=== PATIENT | female | born 2000 | race Caucasian/White ===

== ENCOUNTER 2020-07-27 11:27 | Outpatient (RCR) | payer OTHER, SELFPAY | END 2020-09-12 23:59 | LOC: IMMUN 11:27 | PROVIDERS: Referring Provider Family Medicine; Visit Provider Family Medicine | DX: Z23 Encounter for immunization (principal) | CPT/HCPCS: 0001A; 91300 ==

== ENCOUNTER 2020-11-29 22:26 | Emergency (ER) | payer OTHER, SELFPAY ==
[2020-11-29 22:28] VITALS: BP 163/94; PULSE 100; RESP 18; TEMP 36.3; O2SAT 95; BMI 32.2
[2020-11-29 22:51] LABS: Absolute Neutrophil Count 7.3 X10^3/uL (2.0-7.7); Basophil# 0.11 X10^3/uL; Basophil% 0.8 % (0-1); Eosinophil# 0.24 X10^3/uL; Eosinophils% 1.8 % (0-5); Hematocrit 43.1 % (37-47); Hemoglobin 15.2 g/dL (12.0-15.0); Lymphocyte % 34.5 % (19-41); Mean Corp Hgb Conc 35.3 g/dL (32-36); Mean Corpuscular Hgb 30.8 pg (27.0-32.0); Mean Corpuscular Volume 87.4 fL (81-99); Mean Platelet Vol. 8.4 fl (6.2-12.0); Monocyte# 1.05 X10^3/uL; Monocyte% 7.9 % (0-10); NRBC Flagged by Analyzer 0 % (0-5); Neutrophil # 7.28 X10^3/uL (2.7-7.7); Neutrophil % 54.5 % (47-70); Platelet Count 487 K/mm3 (150-450); RBC Distribution Width CV 14.9 % (11.6-14.6); RBC Distribution Width SD 47.5 fl (35.1-43.9); Red Blood Count 4.93 M/mm3 (4.2-5.4); White Blood Count 13.4 K/mm3 (4.4-11.0)
[2020-11-29 23:02] LABS: Amphetamine Urine VISTA NEGATIVE (<1000 ng/mL); Barbiturate Urine VISTA NEGATIVE (< 200 ng/mL); Benzodiazepine Urine VISTA POSITIVE (< 200 ng/mL); Cocaine Urine VISTA NEGATIVE (< 300 ng/mL); Ecstacy Urine VISTA POSITIVE (< 500 ng/mL); Methadone Urine VISTA NEGATIVE (< 300 ng/mL); PCP Urine VISTA NEGATIVE (< 25 ng/mL); THC Urine VISTA NEGATIVE (< 50 ng/mL); Vista UDS pH Range 5
[2020-11-29 23:08] LABS: Internal QC Validated? YES +Cl - CLEAR BKGD; Pregnancy, Urine Negative Negative
[2020-11-29 23:11] LABS: Anion Gap 3 (5-15); BUN 12 mg/dL (7-18); BUN/Creat Ratio 19.1 RATIO (10-20); Calcium,Total 9.1 mg/dL (8.5-10.1); Chloride 108 mmol/L (98-107); Creatinine, Serum 0.63 mg/dL (0.55-1.02); EST Glomerular Filtration Rate 126 mL/min (>60); Est Glom Filt Rate - Afr Amer 152 mL/min (>60); Estimated Creatinine Clearance 115.87 ml/min; Glucose 86 mg/dL (74-106); Potassium 3.8 mmol/L (3.5-5.1); Sodium Level 138 mmol/L (136-145)
[2020-11-29 23:13] LABS: Alcohol, Blood (Medical)-Serum < 3.0 mg/dL
[2020-11-30 00:21] LABS: Color, Urine Yellow (Yellow); Glucose, Dipstick Normal (Normal); Ketone-Dipstick 5 mg/dl (Negative); Leukocyte Esterase-Dipstick 25 /ul (Negative); Nitrite-Dipstick Negative (Negative); Occult Blood-Urine 150 /ul (Negative); Protein-Dipstick 30 mg/dl (Negative); Specific Gravity, Urine 1.025 (1.002-1.030); Urine Bilirubin Dipstick Negative (Negative); Urine Clarity Sl. Cloudy (Clear); Urine Urobilinogen 1 mg/dl (Normal)
--- NOTE | 2020-11-30 00:31 | NURSING ---
TALKED TO CRISIS AT 0030
--- NOTE | 2020-11-30 00:49 | EX.ED.VIS.PS ---
HPI HPI - Psych History of Present Illness Chief Complaint: Suicidal Informant: patient and parent Onset/Context/Timing Onset: Days Context: Sudden Onset Conflict: Family and - (Things are just not right no longer wants to live and feels hopeless) Timing: Continuous Current Severity: Severe Maximum Severity: Severe Worsened by: Situational factors and - (Issues with father, feels things are not normal.) Relieved by: Nothing Associated Symptoms Associated Symptoms - Psych: Positive for Depressed, Decreased Interest, Guilt, Decreased Concentration, Hopelessness and Suicidal Thoughts; Negative for Change in Eating, Change in sleeping, Grandiosity, Flight of Ideas, Increased activity, Pressured Speech, Agitated, Paranoia, Visual Hallucinations and Auditory Hallucinations Specific plan (suicidal thought): No specific plan Narrative Narrative: 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 She has history of depression. She recently returned from a trip. She was in [place]. She states that she has been back things about the same. She is depressed. She has suicidal thoughts. She has no specific plan. There are issues with her father. She states there are no issues with her 2 brothers. There may be issues with her mom. She voiced her mom that she no longer wants to live. She feels hopeless. She feels there is no reason to live. She is never been hospitalized for depression or psychiatric reasons. She is never attempted to harm herself. Prior similar symptoms: Yes Recent Illness/Hospitalization: No PFSH COUNT INCLUDES THE [facility] Medical History Depression Home Medications norethindrone ac-eth estradiol [June04/26 ()] 1 tab PO DAILY 11/30/20 [History Last Taken Unknown] sertraline 200 mg PO DAILY 11/30/20 [History Last Taken Unknown] Allergy/AdvReac Type Severity Reaction Status Date / Time No Known Allergies Allergy Verified 11/29/20 22:31 no surgical history Social History (Updated 11/30/20 @ 00:[address] Dorian Dozier MD) household members: family Smoking Status: Never smoker alcohol intake: current alcohol intake frequency: other substance use type: does not use ROS ROS ED Constitutional Constitutional ED: Denies chills, fever(s), subjective or sweats Eyes Eyes: Denies blurry vision, change in vision or diplopia ENT ENT ED: Denies ear pain, rhinorrhea or sore throat Cardiovascular Cardiovascular: Denies chest pain, palpitations or racing heartbeat Respiratory/Chest Respiratory/Chest: Denies cough, dyspnea or dyspnea on exertion Gastrointestinal Gastrointestinal: Denies abdominal pain, diarrhea, nausea or vomiting Genitourinary Genitourinary ED: Denies dysuria, hematuria or urinary frequency Musculoskeletal Musculoskeletal: Denies arthralgias, back pain, myalgias or neck pain Integumentary Denies rash Neurologic Neurologic: Denies headache(s), paresthesias or weakness Psychiatric Psychiatric: Reports depression, suicidal ideation and suicidal thoughts Endocrine Endocrinology: Denies polydipsia, polyphagia or polyuria Hematologic/Lymphatic Hematologic/Lymphatic: Denies easy bleeding or easy bruising EXAM Physical Exam Const Vital Signs: 11/29/20 22:28 11/30/20 01:42 Temperature 97.4 F L Temperature Source Temporal Pulse Rate 100 Respiratory Rate 18 16 Blood Pressure 163/94 H Blood Pressure Mean 117 Pulse Ox 95 Oxygen Delivery Method Room Air Positive well nourished, well developed and obese General Appearance ED: well developed and other Depressed affect with slow psychomotor skills ; Negative for pallor Nutritional Appearance: obese HEENT Reports TM's clear and moist mucous membranes normocephalic and atraumatic Tympanic Membrane ED: Yes TM's clear Eyes PERRL and EOMs intact bilaterally General Eye ED: Negative for pale conjunctiva or scleral icterus Neck no lymphadenopathy, supple and no JVD Resp normal respiratory effort and clear to auscultation bilaterally Cardio S1 normal heart sound, S2 normal heart sound and no murmurs Rate: regular rate Rhythm: regular rhythm GI non-tender, non-distended and no masses Auscultation: normoactive bowel sounds Palpation: soft Back/Spine no CVA tenderness Cervical Spine: Negative for cervical spine tenderness Lumbar Spine / Lower Back: Negative for lumbar spinal tenderness Extremity normal to inspection General Extremety ED: Negative for edema or tenderness General Extremity: Negative for edema Neuro oriented x3, CN's II-XII intact bilaterally, no sensory deficits noted and deep tendon reflexes 2+ bilaterally Sensorium / Orientation: alert Motor Exam: strength 5/5 throughout Psych mental status grossly normal, thought process normal, speech normal, denies hallucinations and denies homicidal ideation; Negative for activity/motor behavior normal or denies suicidal ideation Appearance: grossly normal and well kempt Attitude: calm Activity / Motor Behavior: appropriate eye contact Speech: slow and soft Mood & Affect: depressed Thought Process: normal thought process Attention / Concentration: attention grossly intact Memory / Cognition: memory grossly intact Insight: fair Judgement: judgement good Skin General Skin Exam: Negative for jaundice or pallor Lesions: no lesions Rashes: no rashes MDM MDM MDM Narrative Medical decision making narrative: Patient is depressed with thoughts of hopelessness and not wanting to live. Patient will need interviewed by counseling center for admission to psychiatric facility. Lab Data Attestation: I reviewed the patient's lab results. Lab results narrative: The medications he is on may give a false amphetamine test. Labs: Laboratory Results - last 24 hr 11/29/20 11/29/20 11/29/20 22:30 22:30 22:35 WBC RBC Hgb Hct MCV MCH MCHC RDW Std Deviation RDW Coeff of Stephani Plt Count MPV Immature Gran % (Auto) Neut % (Auto) Lymph % (Auto) Hayes % (Auto) Eos % (Auto) Baso % (Auto) Absolute Neuts (auto) Absolute Lymphs (auto) Nucleated RBC % Sodium Potassium Chloride Carbon Dioxide Anion Gap BUN Creatinine Estim Creat Clear Calc Est GFR (MDRD) Af Amer Est GFR (MDRD) Non-Af BUN/Creatinine Ratio Glucose Calcium Urine Color Yellow Urine Clarity Sl. Cloudy Urine pH 5.0 Ur Specific [place] 1.025 Urine Protein 30 H Urine Glucose (UA) Normal Urine Ketones 5 H Urine Occult Blood 150 H Urine Nitrite Negative Urine Bilirubin Negative Urine Urobilinogen 1 H Ur Leukocyte Esterase 25 H Urine RBC 0-5 SEEN Urine WBC 5-10 SEEN Ur Squamous Epith Cells 0-5 SEEN Urine Bacteria 2+ Urine Mucus 3+ Urine Test Negative Urine Opiates Screen NEGATIVE Urine Methadone Screen NEGATIVE Ur Barbiturates Screen NEGATIVE Ur Phencyclidine Scrn NEGATIVE Ur Amphetamines Screen NEGATIVE U Methamphetamin-MDMA POSITIVE H U Benzodiazepines Scrn POSITIVE H Urine Cocaine Screen NEGATIVE U Cannabinoids Screen NEGATIVE Ur Drug Screen Comment Ethyl Alcohol 11/29/20 11/29/20 11/29/20 22:45 22:45 22:45 WBC 13.4 H RBC 4.93 Hgb 15.2 H Hct 43.1 MCV 87.4 MCH 30.8 MCHC 35.3 RDW Std Deviation 47.5 H RDW Coeff of Stephani 14.9 H Plt Count 487 H MPV 8.4 Immature Gran % (Auto) 0.500 Neut % (Auto) 54.5 Lymph % (Auto) 34.5 Hayes % (Auto) 7.9 Eos % (Auto) 1.8 Baso % (Auto) 0.8 Absolute Neuts (auto) 7.3 Absolute Lymphs (auto) 4.60 H Nucleated RBC % 0 Sodium 138 Potassium 3.8 Chloride 108 H Carbon Dioxide 27.0 Anion Gap 3 L BUN 12 Creatinine 0.63 Estim Creat Clear Calc 115.87 Est GFR (MDRD) Af Amer 152 Est GFR (MDRD) Non-Af 126 BUN/Creatinine Ratio 19.1 Glucose 86 Calcium 9.1 Urine Color Urine Clarity Urine pH Ur Specific [place] Urine Protein Urine Glucose (UA) Urine Ketones Urine Occult Blood Urine Nitrite Urine Bilirubin Urine Urobilinogen Ur Leukocyte Esterase Urine RBC Urine WBC Ur Squamous Epith Cells Urine Bacteria Urine Mucus Urine Test Urine Opiates Screen Urine Methadone Screen Ur Barbiturates Screen Ur Phencyclidine Scrn Ur Amphetamines Screen U Methamphetamin-MDMA U Benzodiazepines Scrn Urine Cocaine Screen U Cannabinoids Screen Ur Drug Screen Comment Ethyl Alcohol < 3.0 Treatment and Re-Evaluation Comments:: Patient was interviewed by the licensed nuclear operator from the counseling center. She was contracted for safety. She has an appointment to be seen tomorrow morning. Mother feels comfortable taking her home and will be able to observe her. Discharge Plan Triage Chief Complaint: Suicidal ED Provider: Dorian Dozier Dx/Rx/DC Orders Clinical Impression: Depression, Suicidal thoughts Instructions: ED Depression Prescriptions: No Action sertraline 100 mg tablet 200 mg PO DAILY RF: 0 norethindrone ac-eth estradiol [04/26 (21)] 1-20 mg-mcg tablet 1 tab PO DAILY RF: 0 Primary Care Provider: Care Physician,No Primary Referrals: Counseling,Center [GROUP OF PHYSICIANS] - Keep Jorge appointment Care Physician,No Primary [Primary Care Provider] - Disposition Disposition: Home, Self Care
[2020-11-30 00:57] LABS: Bacteria 2+ /hpf (None Seen); Mucous, Urine 3+ /hpf (<or=2+); Squamous Epithelial Cells - UA 0-5 SEEN /hpf (5-10)
[2020-11-30 00:58] LABS: Red Blood Cells-Urine 0-5 SEEN /hpf (0-5); White Blood Cells 5-10 SEEN /hpf (0-5)
[2020-11-30 01:42] VITALS: RESP 16
== END 2020-11-30 02:30 | disposition home or self-care (01) ==
PROVIDERS: Emergency Provider Emergency Medicine
DX: R45.851 Suicidal ideations (principal); F32.9 Major depressive disorder, single episode, unspecified; E66.9 Obesity, unspecified
CPT/HCPCS: 36415; 80048; 80307; 81001; 81025; 82077; 85025; 99285

== ENCOUNTER 2020-12-04 09:41 | Outpatient (RCR) | payer OTHER, SELFPAY ==
--- NOTE | 2020-12-04 09:05 | BH.SGPN.GN ---
Behaviors/Verbalizations/Mental Status: [] Eye contact is good. Motor activity is appropriate. Appearance is casual. Speech is Appropriate. Mood is anxious. Affect is congruent. Thoughts are linear and logical. No evidence of psychosis. Reviewed daily check in sheet and no reports of suicidal ideations or intent. Client Response/Progress/Benefit: [] Pt spoke when prompted. Attentive. Shared with the group that today is her first day in IOP. When asked what she wants to get out of IOP she replied I want to be better than I am. Identified wanting to the impact of depression on her daily life. Group provided feedback and support and offered advice for her first day/week in the program which was beneficial. No progress noted as this was her first day. Daily symptom tracker notes 4/5 for depression and 3/5 for anxiety. Will continue in IOP to maintain safety, prevent decompensation, and to improve functioning. Narrative Note: []
--- NOTE | 2020-12-04 10:00 | BH.COMM ---
Communication Note - Communication with Client Communication Note: Pt met with therapist to complete initial paperwork. No significant changes since pre-admission assessment. Completed [facility] and did not present as imminent risk. Orders and case discussion with Dr. Iglesias for admission to [facility] level of care with dx of MDD (f33.2)
--- NOTE | 2020-12-04 10:10 | BH.SGPN.GN ---
Behaviors/Verbalizations/Mental Status: []Eye contact is good. Motor activity is appropriate. Appearance is casual. Speech is Appropriate. Mood is depressed. Affect is flat. Thoughts are linear and logical. No evidence of psychosis. Client Response/Progress/Benefit: []Pt frequently nodding during group discussions and attentive during psychoeducation. Took notes as peers identified obstacles or potholes that hinder our ability to communicate in stressful situations. Group identified the following obstacles; yelling, defensiveness, ?stuffing? emotions, shutting down, over-explaining, crying, and scattered thinking. Group provided insight on how emotion and mood can impact effective communication. Pt took an active role during the activity on her first day of treatment and did well to communicate effectively with peers. Benefited from increased awareness on how our emotions impact our communication. Will continue in IOP to prevent decompensation, maintain safety, and learn healthy coping skills. Narrative Note: []
--- NOTE | 2020-12-04 11:20 | BH.SGPN.GN ---
Behaviors/Verbalizations/Mental Status: []Client alert and oriented, casually dressed and groomed. Eye contact fair. Motor activity restless. Speech within normal limits. Affect constricted, mood anxious and irritable. Thoughts linear, logical, no signs of hallucinations or delusions. Client Response/Progress/Benefit: []Client engaged in session AEB client listening attentively to peers and providing input. Attentive during psychoeducation on 4 zones of regulation (blue, green, yellow and red). Client able to identify feelings and behaviors for each zone. Client identified coping skills one can use to support self in each zone. Client stated belief that she is most often in the blue zone because she often feels depressed and doesn't care anymore. Client stated this results in her staying stuck in life. Benefited from increased education on zones of regulation or stages of alertness for emotions and healthy coping skills to use for each zone. First day in IOP. Will continue IOP tx to increase healthy coping, improve daily functioning and prevent decompensation.
== END 2020-12-05 23:59 ==
LOC: BHIOP 09:41
PROVIDERS: Visit Provider Psychiatry & Neurology Psychiatry
DX: F33.2 Major depressive disorder, recurrent severe without psychotic features (principal)
CPT/HCPCS: S9480; 90853